=== PATIENT | female | born 1985 | race Two or more races ===

== ENCOUNTER 2020-08-25 11:19 | Emergency (ER) | payer MEDICAID ==
[~2020-08-25] VITALS: Ht 160 cm; Wt 58.3 kg
[2020-08-25 11:22] VITALS: BP 142/92
--- NOTE | 2020-08-25 11:57 | NUR ---
pt sitting up in chair, typing on work computer, with at bedside. came in due to vison changes in her L eye that occured a few days ago but was worse this morning. pt reports episodes of seeing a white ring in her L eye. Pupils brisk bilat. CMS intact. VSS. NADN.
--- NOTE | 2020-08-25 12:16 | NUR ---
dr tate spoke with dr cesia beard
--- NOTE | 2020-08-25 12:19 | NUR ---
Dr Washburn at bedside to discuss POC.
--- NOTE | 2020-08-25 12:52 | NUR ---
Pt sitting in chair working on laptop, BROOK, denies needs.
--- NOTE | 2020-08-25 13:08 | NUR ---
Dr. Alicea in to evaluate pt.
== END 2020-08-25 14:11 | disposition home or self-care (01) ==
LOC: ED 12:39
DX: H33.002 Unspecified retinal detachment with retinal break, left eye (principal)
CPT/HCPCS: 99284